=== PATIENT | male | born 1980 | race Caucasian/White ===

== ENCOUNTER 2020-10-23 17:18 | Emergency (ER) | payer MEDICAID ==
[~2020-10-23] VITALS: Ht 182.9 cm; Wt 79.5 kg
[2020-10-23 19:43] VITALS: BP 129/64
== END 2020-10-23 20:06 | disposition home or self-care (01) ==
LOC: EMS 17:22
DX: T83.098A Other mechanical complication of other urinary catheter, initial encounter (principal); F17.210 Nicotine dependence, cigarettes, uncomplicated; F12.90 Cannabis use, unspecified, uncomplicated; Z76.0 Encounter for issue of repeat prescription; Z46.6 Encounter for fitting and adjustment of urinary device; Z88.5 Allergy status to narcotic agent; Y84.6 Urinary catheterization as the cause of abnormal reaction of the patient, or of later complication, without mention of misadventure at the time of the procedure
CPT/HCPCS: 51702; 99284; Z7502

== ENCOUNTER 2022-07-26 21:00 | Inpatient (IN) | payer MEDICAID ==
[~2022-07-26] VITALS: Ht 182.9 cm; Wt 72.7 kg
[2022-07-26 21:24] LABS: BASOPHILS % (AUTO) 0.9 % (0.0-2.0); EOSINOPHILS % (AUTO) 2.3 % (1.0-6.0); HEMATOCRIT 43.7 % (41-53); HEMOGLOBIN 14.8 g/dL (13.5-17.5); LYMPHOCYTES # (AUTO) 1.3 K/uL (1.0-4.8); LYMPHOCYTES % (AUTO) 15.7 % (22.0-44.0); MEAN CORPUSCULAR HEMOGLOBIN 30.5 pg (26.0-34.0); MEAN CORPUSCULAR HGB CONC 33.9 G/dL (31.0-37.0); MEAN CORPUSCULAR VOLUME 90 fL (80-100); MONOCYTES # (AUTO) 0.7 K/uL (0.1-1.0); MONOCYTES % (AUTO) 7.6 % (2.0-9.0); NEUTROPHILS # (AUTO) 6.3 K/uL (1.8-7.7); NEUTROPHILS % (AUTO) 73.5 % (40.0-70.0); PLATELET COUNT (AUTO) 171 K/uL (150-450); RED BLOOD CELL COUNT(AUTO) 4.86 MIL/uL (4.50-5.90); RED CELL DISTRIBUTION WIDTH 13.9 % (11.5-14.5)
[2022-07-26 21:27] LABS: COVID AG,FIA SOURCE NASOPHARYNGEAL
[2022-07-26 21:34] LABS: ANION GAP 14 mmol/L (8-16); CALCIUM, TOTAL 8.8 mg/dL (8.8-10.5); CARBON DIOXIDE 21 mmol/L (22-29); CHLORIDE 99 mmol/L (98-107); CREATININE 0.75 mg/dL (0.60-1.30); GLOMERULAR FILTR. RATE CALC > 60 mL/min (>60); GLUCOSE,RANDOM 103 mg/dL (70-110); POTASSIUM 3.5 mmol/L (3.5-5.1); SODIUM SERUM 134 mmol/L (136-145)
[2022-07-26 21:39] LABS: ALANINE AMINOTRANSFERASE 22 U/L (12-78); ALBUMIN 3.8 g/dL (3.4-5.0); ALKALINE PHOSPHATASE 108 U/L (46-116); ASPARTATE AMINOTRANSFERASE 26 U/L (15-37); TOTAL PROTEIN, SERUM 7.6 g/dL (6.4-8.2)
[2022-07-26] MEDS ORDERED: 0.9% SODIUM CHLORIDE 10 ML SYRINGE IVP PRN (23:15)
[2022-07-26] MEDS ORDERED: ONDANSETRON HCL 4 MG/2 ML VIAL IVP PRN ×2 (23:15→23:30)
[2022-07-26] MEDS ORDERED: ACETAMINOPHEN 325 MG TABLET PO PRN (23:15)
[2022-07-26] MEDS ORDERED: MAGNESIUM HYDROXIDE SUSPENSION 30 ML UDCUP PO PRN (23:30)
[2022-07-26] MEDS ORDERED: BISACODYL 10 MG RECTAL RECTAL SUPPOSITORY PR PRN (23:30)
[2022-07-27] MEDS: HYDROCODONE/ACETAMINOPHEN 5-325 MG TABLET PO PRN ×2 (03:18→12:31)
[2022-07-27] MEDS: HEPARIN SODIUM,PORCINE 5,000 UNITS/ML VIAL SQ SCH ×3 (08:00→16:00)
[2022-07-27] MEDS: DOCUSATE SODIUM 100 MG CAPSULE PO SCH ×2 (09:00→20:40)
[2022-07-27 09:17] LABS: APPEARANCE,URINE HAZY (CLEAR); BILIRUBIN,URINE NEGATIVE (NEGATIVE); GLUCOSE, URINE (UA) NEGATIVE (NEGATIVE); KETONES,URINE 80-100 mg/dL (NEGATIVE); LEUKOCYTE ESTERASE ,URINE LARGE (NEGATIVE); NITRATE,URINE NEGATIVE (NEGATIVE); OCCULT BLOOD,URINE NEGATIVE (NEGATIVE); PH,URINE 6.5 (5.0-8.0); PROTEIN,URINE 100-200,SEE CONFIRM mg/dL (NEGATIVE); SPECIFIC GRAVITIY, URINE 1.037 (1.003-1.030)
[2022-07-27] MEDS: PANTOPRAZOLE SODIUM 40 MG DR TABLET PO SCH (09:33)
[2022-07-27] MEDS: MORPHINE SULFATE 2 MG/ML SYRINGE IVP PRN ×3 (09:35→20:43)
[2022-07-27 09:40] LABS: SULFOSALICYLIC ACID,URINE 2+ (Negative)
[2022-07-27 09:41] LABS: BACTERIA,URINE Many /HPF (None Seen); RBC,URINE 0-2 /HPF (0-2); SQUAMOUS EPITHELIAL CELL,UR Few /LPF (None Seen); WBC,URINE 26-50 /HPF (0-5)
[2022-07-27 09:43] LABS: AMPHET/METH SCREEN,URINE POSITIVE (NEGATIVE); BARBITURATE SCREEN, URINE NEGATIVE (NEGATIVE); BENZODIAZEPINES SCREEN,URINE NEGATIVE (NEGATIVE); CANNABINOID SCREEN,URINE POSITIVE (NEGATIVE); COCAINE SCREEN,URINE NEGATIVE (NEGATIVE); METHADONE SCREEN, URINE NEGATIVE (NEGATIVE); OPIATE SCREEN,URINE POSITIVE (NEGATIVE); PHENCYCLIDINE SCREEN,URINE NEGATIVE (NEGATIVE)
[2022-07-27 12:30] VITALS: BP 134/78
[2022-07-27 12:48] VITALS: BP 134/78
[2022-07-27] MEDS: GABAPENTIN 300 MG CAPSULE PO SCH ×2 (16:38→20:40)
[2022-07-27 17:00] VITALS: BP 128/72
[2022-07-27 19:27] VITALS: BP 121/67
[2022-07-28] MEDS: MORPHINE SULFATE 2 MG/ML SYRINGE IVP PRN ×5 (00:58→23:11)
[2022-07-28] MEDS: ZOLPIDEM TARTRATE 5 MG TABLET PO PRN (00:58)
[2022-07-28 08:00] VITALS: BP 123/70
[2022-07-28] MEDS: DOCUSATE SODIUM 100 MG CAPSULE PO SCH ×2 (09:00→19:27)
[2022-07-28] MEDS: HEPARIN SODIUM,PORCINE 5,000 UNITS/ML VIAL SQ SCH ×4 (09:30→23:16)
[2022-07-28] MEDS: GABAPENTIN 300 MG CAPSULE PO SCH ×3 (09:30→19:28)
[2022-07-28] MEDS: PANTOPRAZOLE SODIUM 40 MG DR TABLET PO SCH (09:30)
[2022-07-28] MEDS: HYDROCODONE/ACETAMINOPHEN 5-325 MG TABLET PO PRN ×2 (09:30→18:20)
[2022-07-28 17:21] VITALS: BP 132/71
[2022-07-28 19:40] VITALS: BP 113/64
[2022-07-29] MEDS: MORPHINE SULFATE 2 MG/ML SYRINGE IVP PRN ×3 (02:49→16:35)
[2022-07-29] MEDS: HYDROCODONE/ACETAMINOPHEN 5-325 MG TABLET PO PRN ×2 (04:19→20:43)
[2022-07-29 07:15] VITALS: BP 128/82
[2022-07-29] MEDS: HEPARIN SODIUM,PORCINE 5,000 UNITS/ML VIAL SQ SCH ×2 (08:00→16:00)
[2022-07-29] MEDS: GABAPENTIN 300 MG CAPSULE PO SCH ×3 (08:06→20:40)
[2022-07-29] MEDS: LEVOFLOXACIN 250 MG TABLET PO SCH (08:07)
[2022-07-29] MEDS: PANTOPRAZOLE SODIUM 40 MG DR TABLET PO SCH (08:07)
[2022-07-29] MEDS: DOCUSATE SODIUM 100 MG CAPSULE PO SCH ×2 (08:10→20:39)
[2022-07-29] MEDS: VENLAFAXINE HCL 75 MG ER CAPSULE PO SCH (11:39)
[2022-07-29 15:14] VITALS: BP 124/78
[2022-07-29 20:35] VITALS: BP 120/61
[2022-07-29] MEDS: ZOLPIDEM TARTRATE 5 MG TABLET PO PRN (20:39)
[2022-07-30] MEDS: MORPHINE SULFATE 2 MG/ML SYRINGE IVP PRN ×4 (00:28→19:52)
[2022-07-30 05:30] VITALS: BP 105/65
[2022-07-30 07:23] VITALS: BP 110/68
[2022-07-30] MEDS: HEPARIN SODIUM,PORCINE 5,000 UNITS/ML VIAL SQ SCH ×3 (08:00→15:10)
[2022-07-30] MEDS: VENLAFAXINE HCL 75 MG ER CAPSULE PO SCH (08:37)
[2022-07-30] MEDS: PANTOPRAZOLE SODIUM 40 MG DR TABLET PO SCH (08:37)
[2022-07-30] MEDS: GABAPENTIN 300 MG CAPSULE PO SCH ×3 (08:38→19:52)
[2022-07-30] MEDS: LEVOFLOXACIN 250 MG TABLET PO SCH (08:38)
[2022-07-30] MEDS: DOCUSATE SODIUM 100 MG CAPSULE PO SCH ×2 (08:41→19:55)
[2022-07-30] MEDS: RisperiDONE 1 MG TABLET PO SCH ×2 (12:18→20:29)
[2022-07-30] MEDS: HYDROCODONE/ACETAMINOPHEN 5-325 MG TABLET PO PRN (13:15)
[2022-07-30 15:03] VITALS: BP 121/64
[2022-07-30 19:32] VITALS: BP 123/80
[2022-07-31] MEDS: ZOLPIDEM TARTRATE 5 MG TABLET PO PRN ×2 (00:43→21:46)
[2022-07-31] MEDS: MORPHINE SULFATE 2 MG/ML SYRINGE IVP PRN ×5 (00:43→20:09)
[2022-07-31 05:15] VITALS: BP 122/86
[2022-07-31] MEDS: HEPARIN SODIUM,PORCINE 5,000 UNITS/ML VIAL SQ SCH ×3 (08:00→15:37)
[2022-07-31] MEDS: VENLAFAXINE HCL 75 MG ER CAPSULE PO SCH (08:54)
[2022-07-31] MEDS: LEVOFLOXACIN 250 MG TABLET PO SCH (08:54)
[2022-07-31] MEDS: RisperiDONE 1 MG TABLET PO SCH ×2 (08:54→20:09)
[2022-07-31 08:55] VITALS: BP 139/81
[2022-07-31] MEDS: PANTOPRAZOLE SODIUM 40 MG DR TABLET PO SCH (08:55)
[2022-07-31] MEDS: GABAPENTIN 300 MG CAPSULE PO SCH ×3 (08:57→20:09)
[2022-07-31] MEDS: DOCUSATE SODIUM 100 MG CAPSULE PO SCH ×2 (08:58→20:09)
[2022-07-31] MEDS: HYDROCODONE/ACETAMINOPHEN 5-325 MG TABLET PO PRN (09:00)
[2022-07-31] MEDS ORDERED: CEFA2PLA10 IV (16:04)
[2022-07-31 16:25] VITALS: BP 132/85
[2022-08-01] MEDS: MORPHINE SULFATE 2 MG/ML SYRINGE IVP PRN ×2 (02:55→07:29)
[2022-08-01 04:06] VITALS: BP 104/62
[2022-08-01 07:08] VITALS: BP 110/64
[2022-08-01] MEDS: HEPARIN SODIUM,PORCINE 5,000 UNITS/ML VIAL SQ SCH ×5 (08:00→23:16)
[2022-08-01] MEDS: RisperiDONE 1 MG TABLET PO SCH ×2 (08:30→20:51)
[2022-08-01] MEDS: LEVOFLOXACIN 250 MG TABLET PO SCH (08:30)
[2022-08-01] MEDS: GABAPENTIN 300 MG CAPSULE PO SCH ×3 (08:30→20:50)
[2022-08-01] MEDS: VENLAFAXINE HCL 75 MG ER CAPSULE PO SCH ×2 (08:30→20:50)
[2022-08-01] MEDS: PANTOPRAZOLE SODIUM 40 MG DR TABLET PO SCH (08:30)
[2022-08-01] MEDS: DOCUSATE SODIUM 100 MG CAPSULE PO SCH ×2 (08:30→20:50)
[2022-08-01] MEDS ORDERED: ACETAMINOPHEN 650 MG/20.3 ML SOLUTION UDCUP PO PRN (10:15)
[2022-08-01] MEDS: ACETAMINOPHEN 325 MG TABLET PO PRN ×2 (10:23→15:28)
[2022-08-01 16:00] VITALS: BP 114/67
[2022-08-01 19:54] VITALS: BP 138/88
[2022-08-01 20:19] VITALS: BP 138/88
[2022-08-01] MEDS ORDERED: KETOROLAC TROMETHAMINE 15 MG/ML VIAL IVP ONE (21:00)
[2022-08-02] MEDS: ACETAMINOPHEN 325 MG TABLET PO PRN ×3 (05:47→18:02)
[2022-08-02] MEDS: HEPARIN SODIUM,PORCINE 5,000 UNITS/ML VIAL SQ SCH ×3 (08:00→23:23)
[2022-08-02] MEDS: VENLAFAXINE HCL 75 MG ER CAPSULE PO SCH ×2 (08:10→20:49)
[2022-08-02] MEDS: GABAPENTIN 300 MG CAPSULE PO SCH ×3 (08:10→20:49)
[2022-08-02] MEDS: LEVOFLOXACIN 250 MG TABLET PO SCH (08:10)
[2022-08-02] MEDS: PANTOPRAZOLE SODIUM 40 MG DR TABLET PO SCH (08:11)
[2022-08-02] MEDS: RisperiDONE 1 MG TABLET PO SCH ×2 (08:11→20:49)
[2022-08-02] MEDS: DOCUSATE SODIUM 100 MG CAPSULE PO SCH ×2 (08:13→20:50)
[2022-08-02 09:08] VITALS: BP 125/85
[2022-08-02 15:25] VITALS: BP 137/81
[2022-08-02 19:40] VITALS: BP 140/91
[2022-08-02] MEDS: ZOLPIDEM TARTRATE 5 MG TABLET PO PRN (20:50)
[2022-08-03 05:20] VITALS: BP 126/78
[2022-08-03] MEDS: ACETAMINOPHEN 325 MG TABLET PO PRN ×3 (06:45→20:02)
[2022-08-03] MEDS: HEPARIN SODIUM,PORCINE 5,000 UNITS/ML VIAL SQ SCH ×3 (07:58→16:00)
[2022-08-03] MEDS: RisperiDONE 1 MG TABLET PO SCH ×2 (07:58→20:01)
[2022-08-03] MEDS: DOCUSATE SODIUM 100 MG CAPSULE PO SCH ×2 (07:58→20:03)
[2022-08-03] MEDS: PANTOPRAZOLE SODIUM 40 MG DR TABLET PO SCH (07:58)
[2022-08-03] MEDS: LEVOFLOXACIN 250 MG TABLET PO SCH (07:58)
[2022-08-03] MEDS: GABAPENTIN 300 MG CAPSULE PO SCH ×3 (07:58→20:01)
[2022-08-03] MEDS: VENLAFAXINE HCL 75 MG ER CAPSULE PO SCH ×2 (07:58→20:21)
[2022-08-03 08:13] VITALS: BP 124/92
[2022-08-03] MEDS ORDERED: GABA600T10 PO (13:02)
[2022-08-03] MEDS ORDERED: AMIT100T2 PO (13:02)
[2022-08-03 15:31] VITALS: BP 138/87
[2022-08-03] MEDS: KETOROLAC TROMETHAMINE 15 MG/ML VIAL IVP PRN (15:38)
[2022-08-03 19:58] VITALS: BP 157/86
[2022-08-03] MEDS: SULFAMETHOX/TRIMETH DS 800-160 MG/TABLET PO SCH (20:02)
[2022-08-03] MEDS: ZOLPIDEM TARTRATE 5 MG TABLET PO PRN (20:21)
[2022-08-04 04:45] VITALS: BP 129/73
[2022-08-04] MEDS: KETOROLAC TROMETHAMINE 15 MG/ML VIAL IVP PRN (04:47)
[2022-08-04] MEDS: ACETAMINOPHEN 325 MG TABLET PO PRN ×2 (06:23→18:35)
[2022-08-04 06:35] LABS: BASOPHILS % (AUTO) 0.9 % (0.0-2.0); EOSINOPHILS % (AUTO) 2.8 % (1.0-6.0); HEMATOCRIT 35.5 % (41-53); LYMPHOCYTES % (AUTO) 28.4 % (22.0-44.0); MEAN CORPUSCULAR HEMOGLOBIN 30.7 pg (26.0-34.0); MEAN CORPUSCULAR HGB CONC 33.8 G/dL (31.0-37.0); MEAN CORPUSCULAR VOLUME 91 fL (80-100); MONOCYTES # (AUTO) 0.3 K/uL (0.1-1.0); MONOCYTES % (AUTO) 9.9 % (2.0-9.0); PLATELET COUNT (AUTO) 100 K/uL (150-450); RED BLOOD CELL COUNT(AUTO) 3.92 MIL/uL (4.50-5.90); RED CELL DISTRIBUTION WIDTH 13.9 % (11.5-14.5)
[2022-08-04 06:59] LABS: ANION GAP 6 mmol/L (8-16); CALCIUM, TOTAL 8.4 mg/dL (8.8-10.5); CARBON DIOXIDE 26 mmol/L (22-29); CHLORIDE 102 mmol/L (98-107); CREATININE 0.77 mg/dL (0.60-1.30); GLOMERULAR FILTR. RATE CALC > 60 mL/min (>60); GLUCOSE,RANDOM 111 mg/dL (70-110); POTASSIUM 3.4 mmol/L (3.5-5.1); SODIUM SERUM 134 mmol/L (136-145)
[2022-08-04] MEDS: HEPARIN SODIUM,PORCINE 5,000 UNITS/ML VIAL SQ SCH ×4 (08:00→23:34)
[2022-08-04] MEDS ORDERED: POTASSIUM CHL 10 MEQ/WATER 50 ML IV PRN (09:00)
[2022-08-04] MEDS ORDERED: POTASSIUM CHLORIDE 20 MEQ ER TABLET PO PRN (09:00)
[2022-08-04] MEDS: SULFAMETHOX/TRIMETH DS 800-160 MG/TABLET PO SCH ×2 (09:02→20:03)
[2022-08-04] MEDS: VENLAFAXINE HCL 75 MG ER CAPSULE PO SCH ×2 (09:02→20:03)
[2022-08-04] MEDS: LACTOBACILLUS ACIDOPHILUS/BULGARICUS TABLET PO SCH (09:02)
[2022-08-04] MEDS: GABAPENTIN 300 MG CAPSULE PO SCH ×3 (09:02→20:03)
[2022-08-04] MEDS: RisperiDONE 1 MG TABLET PO SCH ×2 (09:03→20:03)
[2022-08-04] MEDS: PANTOPRAZOLE SODIUM 40 MG DR TABLET PO SCH (09:03)
[2022-08-04] MEDS: DOCUSATE SODIUM 100 MG CAPSULE PO SCH ×2 (09:03→20:03)
[2022-08-04 09:16] VITALS: BP 135/87
[2022-08-04 19:23] VITALS: BP 136/82
[2022-08-04] MEDS: MELATONIN 3 MG TABLET PO SCH (20:03)
[2022-08-05 05:50] VITALS: BP 134/79
[2022-08-05] MEDS: ACETAMINOPHEN 325 MG TABLET PO PRN (05:57)
[2022-08-05 07:11] LABS: EOSINOPHILS % (AUTO) 3.5 % (1.0-6.0); HEMATOCRIT 35.4 % (41-53); HEMOGLOBIN 11.8 g/dL (13.5-17.5); LYMPHOCYTES % (AUTO) 30.5 % (22.0-44.0); MEAN CORPUSCULAR HEMOGLOBIN 29.9 pg (26.0-34.0); MEAN CORPUSCULAR HGB CONC 33.2 G/dL (31.0-37.0); MEAN CORPUSCULAR VOLUME 90 fL (80-100); MONOCYTES # (AUTO) 0.3 K/uL (0.1-1.0); MONOCYTES % (AUTO) 9.7 % (2.0-9.0); NEUTROPHILS # (AUTO) 1.8 K/uL (1.8-7.7); NEUTROPHILS % (AUTO) 55.3 % (40.0-70.0); PLATELET COUNT (AUTO) 97 K/uL (150-450); RED BLOOD CELL COUNT(AUTO) 3.93 MIL/uL (4.50-5.90)
[2022-08-05 07:44] LABS: ANION GAP 7 mmol/L (8-16); CALCIUM, TOTAL 8.5 mg/dL (8.8-10.5); CARBON DIOXIDE 25 mmol/L (22-29); CHLORIDE 105 mmol/L (98-107); CREATININE 0.71 mg/dL (0.60-1.30); GLOMERULAR FILTR. RATE CALC > 60 mL/min (>60); GLUCOSE,RANDOM 105 mg/dL (70-110); POTASSIUM 4.2 mmol/L (3.5-5.1); SODIUM SERUM 137 mmol/L (136-145)
[2022-08-05] MEDS: HEPARIN SODIUM,PORCINE 5,000 UNITS/ML VIAL SQ SCH ×3 (08:00→22:53)
[2022-08-05 08:06] VITALS: BP 133/84
[2022-08-05] MEDS: GABAPENTIN 300 MG CAPSULE PO SCH ×3 (08:12→20:15)
[2022-08-05] MEDS: VENLAFAXINE HCL 75 MG ER CAPSULE PO SCH ×2 (08:12→20:15)
[2022-08-05] MEDS: LACTOBACILLUS ACIDOPHILUS/BULGARICUS TABLET PO SCH (08:12)
[2022-08-05] MEDS: SULFAMETHOX/TRIMETH DS 800-160 MG/TABLET PO SCH ×2 (08:12→20:15)
[2022-08-05] MEDS: RisperiDONE 1 MG TABLET PO SCH ×2 (08:12→20:16)
[2022-08-05] MEDS: PANTOPRAZOLE SODIUM 40 MG DR TABLET PO SCH (08:13)
[2022-08-05] MEDS: DOCUSATE SODIUM 100 MG CAPSULE PO SCH ×2 (08:14→20:20)
[2022-08-05 14:46] LABS: COVID AG,FIA SOURCE NASAL SWAB
[2022-08-05 16:38] VITALS: BP 133/84
[2022-08-05 19:40] VITALS: BP 136/90
[2022-08-05] MEDS: MELATONIN 3 MG TABLET PO SCH (20:18)
[2022-08-05] MEDS: ZOLPIDEM TARTRATE 5 MG TABLET PO PRN (20:19)
[2022-08-06 04:15] VITALS: BP 130/68
[2022-08-06 07:47] VITALS: BP 128/79
[2022-08-06] MEDS: HEPARIN SODIUM,PORCINE 5,000 UNITS/ML VIAL SQ SCH (08:00)
[2022-08-06] MEDS: ACETAMINOPHEN 325 MG TABLET PO PRN (08:36)
[2022-08-06] MEDS: PANTOPRAZOLE SODIUM 40 MG DR TABLET PO SCH (08:37)
[2022-08-06] MEDS: GABAPENTIN 300 MG CAPSULE PO SCH (08:37)
[2022-08-06] MEDS: LACTOBACILLUS ACIDOPHILUS/BULGARICUS TABLET PO SCH (08:37)
[2022-08-06] MEDS: SULFAMETHOX/TRIMETH DS 800-160 MG/TABLET PO SCH (08:41)
[2022-08-06] MEDS: RisperiDONE 1 MG TABLET PO SCH (08:41)
[2022-08-06] MEDS: VENLAFAXINE HCL 75 MG ER CAPSULE PO SCH (08:42)
[2022-08-06] MEDS: DOCUSATE SODIUM 100 MG CAPSULE PO SCH (08:44)
[2022-08-06] MEDS ORDERED: GABA-1181 PO (15:11)
[2022-08-06] MEDS ORDERED: LACT1TAB14 PO (15:12)
[2022-08-06] MEDS ORDERED: MELA3TAB89 PO (15:13)
[2022-08-06] MEDS ORDERED: RISP2TAB45 PO (15:14)
[2022-08-06] MEDS ORDERED: SULF-261 PO (15:14)
[2022-08-06] MEDS ORDERED: VENL-193 PO (15:15)
== END 2022-08-06 15:45 | disposition home or self-care (01) | DRG 463 ==
LOC: EMS 21:03 → 6S 07-27 05:47 → 6N 07-30 17:18 → 6S 07-31 17:37
PROVIDERS: ADMIT Internal Medicine; ATTEND Internal Medicine
DX: N39.0 Urinary tract infection, site not specified (principal); F25.1 Schizoaffective disorder, depressive type; G82.20 Paraplegia, unspecified; R45.851 Suicidal ideations; Z20.822 Contact with and (suspected) exposure to COVID-19; F23 Brief psychotic disorder; R33.9 Retention of urine, unspecified; F11.20 Opioid dependence, uncomplicated; F32.9 Major depressive disorder, single episode, unspecified; Z59.00 Homelessness unspecified; Z87.891 Personal history of nicotine dependence; Z88.1 Allergy status to other antibiotic agents
CPT/HCPCS: 80048; 80053; 80307; 81001; 81002; 84132; 85025; 87086; 87186; 97162; 97530; 99285; G0480; J1644; J1885; J2270